=== PATIENT | female | born 1975 | race Caucasian/White ===

== ENCOUNTER → 2016-06-24 | Outpatient (CLI) | payer OTHER ==
[~2016-06-24] MED LIST: IBUP-232 PO; PREN0.01 PO; PREN29TA PO
== END ==
LOC: CPRE 12:46
PROVIDERS: ATTEND Obstetrics & Gynecology
DX: Z01.812 Encounter for preprocedural laboratory examination (principal)

== ENCOUNTER → 2016-06-29 | Day surgery (SDC) | payer OTHER ==
[~2016-06-29] VITALS: Ht 162.6 cm; Wt 87.1 kg
[~2016-06-29] MED LIST changes: +ACETAMINOPHEN 1000 MG/100 ML VIAL IV ONE; +FAMOTIDINE 20 MG/2 ML VIAL ONE; -IBUP-232 PO; +INSULIN HUMAN REGULAR 1,000 UNITS/10 ML VIAL SQ PRN; +KETOROLAC TROMETHAMINE 60 MG/2 ML (IM) VIAL IM ONE; +LACTATED RINGER'S 1000 ML INJ 1,000 ML IV ONE; +LACTATED RINGER'S 1000 ML IV SCH; +METOPROLOL TARTRATE 25 MG TAB PO PRN; +MIDAZOLAM HCL 2 MG/2 ML VIAL ONE; +NEOSTIGMINE 3 MG/3 ML SYR IV ONE; +ONDANSETRON HCL 4 MG/2 ML VIAL IV PUSH ONE; -PREN0.01 PO; +PROPOFOL 200 MG/20 ML AMP IV ONE; +SODIUM CHLORID 0.9% 500 ML IV SCH; +fentaNYL CITRATE 250 MCG/5 ML AMP ONE; +oxyCODONE/ACETAMINOPHEN 5 MG/325 MG TAB ONE
[2016-06-29 10:49] VITALS: BP 112/78; PULSE 64; RESP 20; TEMP 98.1; O2SAT 98
--- NOTE | 2016-06-29 12:53 | PD.OP ---
[facility] Operative Report Date of Surgery: Jun 29, 2016 Preoperative Diagnosis: (1) Unwanted fertility Postoperative Diagnosis: (1) Unwanted fertility (2) Nevus Procedure: Dilation and curettage of the uterus, Laparoscopic bilateral salpingectomy Removal of umbilical nevus Anesthesia: Gen. endotracheal anesthesia Surgeon: Lennox Morris M.D. Ophthalmology Assistant(s): 0 Operation and Findings: Exam under anesthesia revealed a normal vagina a parous cervix without lesions. Uterus normal size shape and consistency no adnexal masses Postoperative scopic exam revealed normal ovaries normal fallopian tubes normal uterus Counts were correct Estimated blood loss minimal Complications were none Procedure in detail Patient was taken to the operating room identified by name band and verbally given a general anesthetic and placed in the dorsal lithotomy position. A timeout was taken. Her urinary bladder was drained with an in and out catheter and an exam under anesthesia was carried out with the above findings. A weighted speculum was placed into the vagina and the anterior lip of the cervix was grasped with a single-tooth tenaculum. The cervix was serially dilated without difficulty a #1 curet was used to obtain the endometrial curettings. A Hulka clamp was placed. Attention was turned to the umbilical area. What I thought was to hurt in the umbilicus in the office actually was a small nevus and this was excised with a # 11 blade. An umbilical incision was made and with the 5 mm trocar the abdomen was entered out difficulty and a pneumoperitoneum was created with 3 L of CO2. Inferior lateral to the umbilicus bilaterally 2 more 5 mm trochars were placed. The entire pelvis was carefully inspected and the fimbriated end of the left fallopian tube was lifted up and using the Kleppinger forceps the mesial salpinx was arise and cut with the scissors the entire fallopian tube was removed and brought out through the 5 mm scope and sent for pathologic diagnosis this procedure was repeated on the contralateral side both tubes were completely excised and hemostasis was excellent at this point the laparoscope was removed under direct vision and the air was released through the and third puncture the incisions were then repaired with a 4-0 Monocryl subcuticular manner she tolerated the procedure well went recovery room in good condition. Jovan Morris MD Jun 29, 2016 12:53
[2016-06-29 13:39] VITALS: BP 120/76; PULSE 59; RESP 18; TEMP 97.4; O2SAT 96
== END | disposition home or self-care (01) ==
LOC: HSDC 10:03
PROVIDERS: ATTEND Obstetrics & Gynecology
DX: Z30.2 Encounter for sterilization (principal); L82.1 Other seborrheic keratosis; D22.5 Melanocytic nevi of trunk
CPT/HCPCS: 00840; 11400; 58120; 58661; 88302; 88305; J0131; J1885; J2250; J2405; J2710; J3010; J7120